=== PATIENT | male | born 1945 | race Caucasian/White ===

== ENCOUNTER 2017-01-10 20:39 | Inpatient (IN) | payer OTHER ==
[~2017-01-10] VITALS: Ht 160 cm; Wt 74.6 kg
--- NOTE | 2017-01-10 20:40 | NUR ---
TO BED 3 BIB PARAMEDICS C/O SEVERE SOB PER EMS REPORT. RECEIVED PT ON C-PAP. ER MD AT BEDSIDE TO EVAL PT WITH ORDERS RECEIVED. RT AT BEDSIDE. PLACE PT ON SIMPLE MASK 10L PER ER MD ORDER. PLACE PT ON CARDAIC MONITORING, CONTINUOUS POX. WILL CARRY OUT ORDERS.
--- NOTE | 2017-01-10 20:50 | NUR ---
CALLED [facility] [phone] AND SPOKE WITH OSCAR THE CAREGIVER. SHE WILL FAX DISCHARGE PAPERWORK FROM [facility] TO OUR ER.
[2017-01-10 20:58] LABS: BASOPHILS # (AUTO) 0.1 /CMM (0.0-0.2); BASOPHILS % (AUTO) 1.1 % (0.0-2.0); EOSINOPHILS % (AUTO) 0.1 % (0.0-6.0); HEMATOCRIT 43 % (39-51); HEMOGLOBIN 14.3 g/dL (13.5-17.5); LYMPHOCYTES # (AUTO) 1.2 /CMM (0.8-4.8); LYMPHOCYTES % (AUTO) 15.8 % (20.0-44.0); MEAN CORPUSCULAR HEMOGLOBIN 29 PG (26.0-33.0); MEAN CORPUSCULAR HGB CONC 33 g/dl (31.0-36.0); MEAN CORPUSCULAR VOLUME 88 fL (80-96); MONOCYTES # (AUTO) 0.4 /CMM (0.1-1.30); MONOCYTES % (AUTO) 5.4 % (2.0-12.0); NEUTROPHILS # (AUTO) 5.8 /CMM (1.8-8.9); NEUTROPHILS % (AUTO) 77.6 % (43.0-81.0); PLATELET COUNT (AUTO) 252 /CMM (150-450); RED BLOOD CELL COUNT(AUTO) 4.92 MIL/uL (4.5-6.0); WHITE BLOOD COUNT (AUTO) 7.5 K/uL (4.3-11.0)
--- NOTE | 2017-01-10 20:58 | NUR ---
NOTED PT O2 SAT 81% ON SIMPLE MASK, ER MD MADE AWARE WITH ORDER TO PREP PT FOR INTUBATION.
[2017-01-10] MEDS ORDERED: IV NS 0.9% 1,000 ML BAG IV ONE ×3 (21:00→22:00)
[2017-01-10] MEDS ORDERED: PIPERACILLIN /TAZOBACTAM 3.375 G in IV D5W 50 ML IV ONE (21:00)
--- NOTE | 2017-01-10 21:00 | NUR ---
PT INTUBATED BY DR. HALL ET-TUBE 8.0 FR, 25CM AT THE LIP LINE WITH (+) COLOR CHANGE ON THE CO2 DETECTOR, BILATERAL EQUAL BREATH SOUNDS HEARD BILATRALLY ON AUSCULTATION. WILL CONTINUE TO MONITOR PT CLOSELY.
--- NOTE | 2017-01-10 21:04 | NUR ---
RT PLACE PT ON VENT SETTINGS TO AC-16, TV-500, FIO2-100%, PEEP-5 PER ER MD ORDER. WILL CONTINUE TO MONITOR PT CLOSELY.
[2017-01-10 21:09] LABS: CARBON DIOXIDE 24 mmol/L (21-32); CHLORIDE 100 mmol/L (98-107); CREATININE 1.7 mg/dL (0.6-1.3); GLUCOSE 189 mg/dL (74-106); POTASSIUM 4.4 mmol/L (3.5-5.1); SODIUM SERUM 138 mmol/L (136-145); UREA NITROGEN, BLOOD 28 mg/dL (7-18)
[2017-01-10] MEDS ORDERED: PIPERACILLIN /TAZOBACTAM 3.375 G VIAL IV ONE (21:12)
[2017-01-10 21:13] LABS: INR 1.15 (0.87-1.13)
--- NOTE | 2017-01-10 21:16 | NUR ---
ET-TUBE PULLED BACK TO 24CM PER ER MD ORDER.
[2017-01-10 21:22] LABS: ALANINE AMINOTRANSFERASE 97 U/L (12-78); ALBUMIN 2.6 g/dL (3.4-5.0); ALKALINE PHOSPHATASE 143 U/L (46-116); ASPARTATE AMINOTRANSFERASE 57 U/L (15-37); B-TYPE NATRIURETIC PEPTIDE 17042 PG/ML (0-125); BILIRUBIN,DIRECT 0.2 mg/dL (0.0-0.2); BILIRUBIN,TOTAL 0.5 mg/dL (0.2-1.0); CALCIUM, SERUM 8.7 mg/dL (8.5-10.1); TOTAL PROTEIN, SERUM 7.4 g/dL (6.4-8.2)
--- NOTE | 2017-01-10 21:25 | NUR ---
ICU 255
[2017-01-10 21:30] LABS: TROPONIN I 0.631 ng/mL (0.00-0.056)
--- NOTE | 2017-01-10 21:39 | NUR ---
RT AT BEDSIDE FOR ABG.
[2017-01-10] MEDS ORDERED: DEXAMETHASONE SOD PHOSPHATE 10 MG/ML VIAL ONE (21:40)
[2017-01-10] MEDS ORDERED: ACETAMINOPHEN 650 MG/SUPP.RECT RC ONE ×2 (21:41→22:00)
[2017-01-10] MEDS ORDERED: PROPOFOL 100 ML IV ONE (21:41)
[2017-01-10 21:46] LABS: ABG BASE EXCESS -4.6 mmol/L; ABG OXYGEN SATURATION 99.3 % (92.0-98.5); ABG PH 7.308 (7.350-7.450); ABG PO2 445.4 mmHg (75.0-100.0); AaDO2 223.6 mmHg; COHb 0.3 % (0.5-1.5); MetHb 0.7 % (0.0-1.5); O2Hb 98.3 % (94.0-97.0); SITE, ABG Right Brachial
--- NOTE | 2017-01-10 21:53 | NUR ---
RT CHANGED VENT SETTINGS TO AC-16, TV-500, FIO2-50%, PEEP-5 PER ER MD ORDER. WILL CONTINUE TO MONITOR PT CLOSELY.
[2017-01-10] MEDS ORDERED: DEXAMETHASONE SOD PHOSPHATE 10 MG/ML VIAL IV ONE (22:00)
[2017-01-10] MEDS ORDERED: PROPOFOL 100 ML IV PRN (22:00)
--- NOTE | 2017-01-10 22:03 | NUR ---
DR. HALL GAVE SIGN-OUT TO DR. GARCIA.
--- NOTE | 2017-01-10 22:19 | NUR ---
REPORT CALLED TO ELEVATOR ERECTOREMILY HUDSON. WILL TRANSPORT PT VIA ACLS PROTOCOL.
[2017-01-10 22:36] LABS: BAND % (MANUAL) 62 % (0.0-5.0); LYMPHOCYTES % (MANUAL) 12 % (16-48); MONOCYTES % (MANUAL) 9 % (0-11.0); NEUTROPHILS % (MANUAL) 17 (42-76)
[2017-01-10 22:38] VITALS: BP 93/55
[2017-01-10 23:00] VITALS: BP 89/63
[2017-01-10] MEDS ORDERED: ENOXAPARIN SODIUM 30 MG/0.3 ML DISP.SYRIN SQ SCH (23:00)
[2017-01-10] MEDS ORDERED: MORPHINE SULFATE INJ 2 MG/ML DISP.SYRIN IV PRN (23:00)
[2017-01-10] MEDS ORDERED: Z GUARD REMEDY 2 OZ OINT TP PRN (23:00)
[2017-01-10] MEDS ORDERED: ACETAMINOPHEN 325 MG TABLET PO PRN (23:00)
[2017-01-10] MEDS ORDERED: ONDANSETRON HCL/PF 4 MG/2 ML VIAL IVP PRN (23:00)
[2017-01-10 23:08] VITALS: BP 89/63
[2017-01-10] MEDS: IV NS 0.9% 1,000 ML IV PRN (23:11)
[2017-01-10] MEDS ORDERED: ENOXAPARIN SODIUM 30 MG/0.3 ML DISP.SYRIN ONE (23:13)
[2017-01-10 23:15] VITALS: BP 88/56
[2017-01-10 23:30] VITALS: BP 90/52
[2017-01-10] MEDS ORDERED: IV NS 0.9% 1,000 ML IV ONE (23:30)
[2017-01-10] MEDS ORDERED: VANCOMYCIN 1 GM VIAL ONE (23:43)
[2017-01-10 23:45] VITALS: BP 96/55
[2017-01-11] VITALS (59 sets, daily range): BP systolic 65–142; BP diastolic 31–78
[2017-01-11] MEDS ORDERED: PROPOFOL 100 ML IV PRN
--- NOTE | 2017-01-11 01:00 | NUR ---
FOOD SCIENCE PROFESSOR - REC'D PT. FROM E.[facility]. REC' PHONE REPORT FROM ED-Henok KRUEGERN. PT. BROUGHT UP VIA GURNEY TO RM#[id number]. PT. IS FROM [facility]. ADMITTED FOR SEPTIC SHOCK/RESP. FAILURE. PT. IS SEDATED ON DIPRIVAN GTT. AT 10 MCG/KG/MIN. PT.IS VENTED W/SETTINGS AT AC-16, TV-550, 50% & PEEP OF 5. HEART MONITOR SHOWS SBP'S HOVERING IN THE LOW 90'S, SOMETIMES 80'S. HR/ST/LOW 100'S. SOFT WRIST RESTRAINTS INTACT. NO UOP VIA GA. AWARE OF VS'S & UOP. ORDERS REC'D. OGT IS TO LIS-EXPELLING BROWN GASTRIC CONTENTS. DRY SCAB/OLD WOUND TO LEFT LOWER MEDIAL ASPECT OF LEG. PICC LINE ORDERED. 2 PIVS HAVE ALL PORTS PATENT TO FLUSH. TROPONIN & LACTIC ACID DRAWN. PENDING RESULTS. CONT. POC.
--- NOTE | 2017-01-11 02:00 | NUR ---
BOTTOMING ROOM INSPECTOR - LACTIC ACID IS 3.8. INITIAL LA WAS 6.0. TROPONIN IS 0.895. INITIAL TROPONIN WAS 0.631. DIPRIVAN GTT. INCREASED TO 15 MCG/KG/MIN. PT. IS RESTLESS TERRIE. OGT HAS NOW PUT OUT A TOTAL OF 1300CC. CONT. TO MONITOR CLOSELY.
[2017-01-11] MEDS ORDERED: PIPERACILLIN /TAZOBACTAM 3.375 G VIAL IV ONE (04:11)
[2017-01-11 04:43] LABS: EOSINOPHILS % (AUTO) 0.1 % (0.0-6.0); HEMATOCRIT 40 % (39-51); HEMOGLOBIN 13.1 g/dL (13.5-17.5); LYMPHOCYTES # (AUTO) 0.3 /CMM (0.8-4.8); LYMPHOCYTES % (AUTO) 4.1 % (20.0-44.0); MEAN CORPUSCULAR HEMOGLOBIN 29 PG (26.0-33.0); MEAN CORPUSCULAR HGB CONC 33 g/dl (31.0-36.0); MEAN CORPUSCULAR VOLUME 90 fL (80-96); MONOCYTES # (AUTO) 0.2 /CMM (0.1-1.30); MONOCYTES % (AUTO) 2.3 % (2.0-12.0); NEUTROPHILS # (AUTO) 6.2 /CMM (1.8-8.9); NEUTROPHILS % (AUTO) 93.5 % (43.0-81.0); PLATELET COUNT (AUTO) 200 /CMM (150-450); RED BLOOD CELL COUNT(AUTO) 4.48 MIL/uL (4.5-6.0); WHITE BLOOD COUNT (AUTO) 6.6 K/uL (4.3-11.0)
[2017-01-11] MEDS ORDERED: PIPERACILLIN /TAZOBACTAM 3.375 G in IV D5W 50 ML IV SCH ×2 (05:00→12:00)
[2017-01-11 05:10] LABS: CALCIUM, SERUM 7.8 mg/dL (8.5-10.1); CARBON DIOXIDE 25 mmol/L (21-32); CHLORIDE 106 mmol/L (98-107); CREATININE 2.5 mg/dL (0.6-1.3); GLUCOSE 100 mg/dL (74-106); MAGNESIUM 2.1 mg/dL (1.8-2.4); PHOSPHORUS 4.7 mg/dL (2.5-4.9); POTASSIUM 4.8 mmol/L (3.5-5.1); SODIUM SERUM 142 mmol/L (136-145); UREA NITROGEN, BLOOD 40 mg/dL (7-18)
[2017-01-11 05:13] LABS: CHOLESTEROL 92 mg/dL (<200); HDL CHOLESTEROL 27 mg/dL (40-60); LDL 52 mg/dL (0-99); TRIGLYCERIDES 67 mg/dL (30-150)
[2017-01-11] MEDS ORDERED: NOREPINEPHRINE 4 MG/4 ML AMPUL IV ONE ×2 (05:33)
[2017-01-11 05:42] LABS: B-TYPE NATRIURETIC PEPTIDE 38445 PG/ML (0-125)
[2017-01-11] MEDS: NOREPINEPHRINE 8 MG in IV D5W 500 ML IV PRN ×2 (05:52→09:28)
--- NOTE | 2017-01-11 07:00 | NUR ---
icu initial note received pt sedated, unable to follow commands, does not respond to name, pt is on mech vent ett 8.0 @ 24 lipline ac 16 ac 550 fio2 50% peep 5, sating well, pt is tachypnea, sweating at this time, pt using accessory muscles, pt is on bedside monitor showing st 110's, no s/s of chest pain or discomfort at this time, pt has ogt, connected to lis, output of 1300ml, dark brown fluid, pt has f/c draining very minimal urine, aware, pt has l hand #16g, running diprivan @20mcg/min, levo running @ 6mcg/min, c/d/i/patent, flushing well, no s/s of infection/ infltration noted at this time, r wrist #18g,ns @ 100ml/hr,c/d/i/patent, flushing well, no s/s of infection/ infiltration noted at this time, pt has bilateral wrist restraints, removed at this time, at bedside, pt has no family, pt needs picc line for vasopressors, aware, all safety measures in place at all times, call light within easy reach, will monitor pt closely for changes
--- NOTE | 2017-01-11 07:00 | NUR ---
FIELD ARTILLERY OPERATIONS SPECIALIST - LEVOPHED & DIPRIVAN GTTS WERE BOTH INCREASED DURING END OF SHIFT. PLEASE REVIEW IV SPREAD SHEET FOR TIMES & LEVELS NOTED. POOR UOP VIA GA. A TOTAL OF 2400CC NOTED FROM OGT. VENT SETTINGS UNCHANGED. VERBAL REPORT GIVEN TO ARMANDO PATEL POC.
--- NOTE | 2017-01-11 07:26 | NUR ---
COUNSELING SERVICES MANAGER CALLED DR. GARCIA AND INFORMED THAT PATIENT IS ON 9 MCG LEVOPHED. PATIENT IS UNABLE TO GIVE CONSENT. NO FAMILY CONTACT INFO ON FILE. PER MD, PATIENT NEEDS AN EMERGENCY CONSENT FOR PICC LINE DUE TO HEMODYNAMIC INSTABILITY. SOFTWARE PACKAGING ENGINEER MADE AWARE. PER MD, HE WILL ADD THIS INFO TO PROGRESS NOTES.
--- NOTE | 2017-01-11 07:45 | NUR ---
sedation vacation Diprivan titrated down per protocol, pt does not follow commands, does not trach, unable to move extremities, responds to deep pain stimuli only, vvs stable at this time, pt is resting comfortably
[2017-01-11] MEDS ORDERED: ENOXAPARIN SODIUM 30 MG/0.3 ML DISP.SYRIN SQ SCH (07:46)
[2017-01-11] MEDS ORDERED: FEE PK DOSING 1 MIN EA MC ONE (07:57)
--- NOTE | 2017-01-11 08:00 | NUR ---
icu note pt needs picc line, pt is unable to consent, pt has no family, md aware
--- NOTE | 2017-01-11 08:23 | NUR ---
WOUND CARE CONSULT PATIENT SEEN AND SKIN ASSESSMENT LIMITED PATIENT BP UNSTABLE FOR TURNING AT THIS TIME. PLEASE SEE WOUND SHOWER DOORS AND PANELS FABRICATOR IN PCS ALONG WITH ALL RECOMMENDATIONS. PATIENT WITH YENI AT 11, ALL SKIN MANAGMENT DISCUSSED WITH NURSING AT THE BEDSIDE. RECOMMENT TURNING SCHEDULE Q 2 HOURS PATIENT CONDITION PERMITS, BILATERAL HEEL FLOATING, USE OF Z GUARD FOR SKIN/MOISTURE MANAGEMENT. 1ST STEP LOW AIRLOSS MATTRESS ORDERED AND TO BE PLACED WHEN AVAILABLE IN THE UNIT. MD IN AGREEMENT WITH PLAN OF CARE. Addendum: 01/11/17 at 4880 by MARK BUSTOS WNDNU Amended: Links added.
[2017-01-11] MEDS ORDERED: PANTOPRAZOLE 40 MG VIAL IV SCH (09:00)
[2017-01-11] MEDS ORDERED: QUET50TA PO (09:06)
[2017-01-11] MEDS ORDERED: SENN8.6T6 PO (09:06)
[2017-01-11] MEDS ORDERED: FERR-58 PO (09:06)
[2017-01-11] MEDS ORDERED: HALO5TAB PO (09:06)
[2017-01-11] MEDS ORDERED: QUET25TA PO (09:06)
[2017-01-11] MEDS ORDERED: TIOT18CA3 IH (09:06)
[2017-01-11] MEDS ORDERED: ALBU8.5H2 IH (09:06)
[2017-01-11] MEDS ORDERED: CARB300C6 PO (09:06)
[2017-01-11] MEDS ORDERED: DOCU-25 PO (09:06)
[2017-01-11] MEDS: IV NS 0.9% 1,000 ML IV PRN (09:29)
[2017-01-11] MEDS ORDERED: ASPIRIN 300 MG/SUPP.RECT RC SCH (09:30)
--- NOTE | 2017-01-11 09:30 | NUR ---
icu note diprivan restarted, per protocol, pt is restless, sweating, rr increased, hr increased, pt biting on ett, will monitor closely
[2017-01-11] MEDS ORDERED: NOREPINEPHRINE 16 MG in IV D5W 500 ML IV PRN (11:00)
[2017-01-11] MEDS ORDERED: PHENYLEPHRINE 80 MG in IV NS 0.9% 250 ML IV PRN (11:00)
--- NOTE | 2017-01-11 12:00 | NUR ---
icu note picc line rn at bedside
--- NOTE | 2017-01-11 12:00 | NUR ---
ICU NOTE PT UNABLE TO BE TURNED AT THIS TIME,PT IS ON 2 BLOOD PRESSORS
--- NOTE | 2017-01-11 12:57 | NUR ---
ICU NOTE PSUHPA VASPRESSOR WAS STARTED
--- NOTE | 2017-01-11 13:00 | NUR ---
ICU NOTE DR. CRUZ, DR. CAVRER MADE ROUNDS, AWAKE OF ALL LABS AND RESULTS, ALL NEW ORDERS ACK
[2017-01-11] MEDS ORDERED: IV NS 0.9% 1,000 ML IV PRN (13:37)
[2017-01-11 14:54] LABS: ABG BASE EXCESS -13.6 mmol/L; ABG PCO2 41.1 mmHg (35.0-45.0); ABG PH 7.163 (7.350-7.450); ABG PO2 77.9 mmHg (75.0-100.0); AaDO2 232.4 mmHg; COHb 0.3 % (0.5-1.5); MetHb 0.9 % (0.0-1.5); O2Hb 90.9 % (94.0-97.0); PEEP,BG 0 cm H2O; SITE, ABG Left Femoral; VENT MODE, BG AC 22 550 50% +0; VT, ABG 550 mL
--- NOTE | 2017-01-11 15:25 | NUR ---
ICU NOTE PT FOUND PULSELESS, PEA ON MONITOR, SIM FRANCOIS CALLED, CPR PERFORMED, REFER TO SIM PARRY, DR. ZAMUDIO AT BEDSIDE Addendum: 01/11/17 at 1600 by ARMANDO HARRIS RN ADDED: SUCCESSFUL CODE, PT WAS SINUS TACH @ 122BPM
[2017-01-11] MEDS ORDERED: SODIUM BICARBONATE SYR 50 MEQ/50 ML DISP.SYRIN IV ONE ×2 (15:42→15:57)
[2017-01-11] MEDS ORDERED: DEXTROSE 50%-WATER 50 ML DISP.SYRIN IV ONE (15:42)
[2017-01-11] MEDS ORDERED: EPINEPHRINE (1:10,000) SYRINGE 1 MG/10 ML DISP.SYRIN IVP ONE ×2 (15:42→15:57)
[2017-01-11] MEDS ORDERED: ATROPINE SULFATE 1 MG/10 ML DISP.SYRIN IV ONE (15:42)
--- NOTE | 2017-01-11 15:48 | NUR ---
ICU NOTE PT FOUND PULSELESS, PEA ON MONITOR, SIM FRANCOIS CALLED, CPR PERFORMED, REFER TO CODE BLUE SHEET Addendum: 01/11/17 at 1601 by ARMANDO HARRIS RN ADDED: UNSUCCESSFUL SIM, @ BEDSIDE,
--- NOTE | 2017-01-11 15:52 | NUR ---
NOTE - RN IC SECOND COLD BLUE UNSUCCESSFUL. ER PHYSICIAN PRONOUNCED THE PATIENT AT 1552H TODAY. VITAL SINGS UNREADABLE.
--- NOTE | 2017-01-11 16:28 | NUR ---
icu note [facility] called, ref # [id number]
--- NOTE | 2017-01-11 16:30 | NUR ---
RECLAIMER CALLED [facility]ER [phone]. SPOKE TO MARIAH. INFORMED LUIS THAT PATIENT'S MEDICAL HISTORY, HOW HER ARRIVED IN OUR FACILITY FROM A [facility]. INFORMED LUIS THAT PRIOR TO BOARD AND CARE, HE IS A HOMELESS. 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 CRUZ NUMBER- [id number]
--- NOTE | 2017-01-11 16:33 | NUR ---
PIPE AND TANK FABRICATOR CALLED [facility]. PER [facility] THIS DOES NOT QUALITY FOR ORGAN DONATION. REF NUMBER [id number]
--- NOTE | 2017-01-11 16:36 | NUR ---
FILM TECHNICIAN PER MARIAH FROM [facility] BODY GOES TO [facility]. PRODUCT SAFETY SPECIALIST MADE AWARE.
--- NOTE | 2017-01-11 17:00 | NUR ---
icu note body was prepped,taken to morgue with security.chart given to mix house tender
[2017-01-11] MEDS ORDERED: VANCOMYCIN 1 GM in IV D5W 250 ML IV SCH ×3 (23:00)
== END 2017-01-11 18:39 | disposition expired | DRG 871 ==
LOC: ER 20:42 → ICU 22:16
PROC: 5A1935Z Respiratory Ventilation, Less than 24 Consecutive Hours (ICD-10-PCS; principal; 2017-01-10)
PROC: 02HV33Z Insertion of Infusion Device into Superior Vena Cava, Percutaneous Approach (ICD-10-PCS; 2017-01-11)
PROC: B548ZZA Ultrasonography of Superior Vena Cava, Guidance (ICD-10-PCS; 2017-01-11)
DX: A41.9 Sepsis, unspecified organism (principal); J69.0 Pneumonitis due to inhalation of food and vomit; J96.01 Acute respiratory failure with hypoxia; I21.4 Non-ST elevation (NSTEMI) myocardial infarction; N17.0 Acute kidney failure with tubular necrosis; R65.21 Severe sepsis with septic shock; K56.60 Unspecified intestinal obstruction; J15.6 Pneumonia due to other Gram-negative bacteria; J15.9 Unspecified bacterial pneumonia; E87.2 Acidosis; K56.7 Ileus, unspecified; F03.90 Unspecified dementia, unspecified severity, without behavioral disturbance, psychotic disturbance, mood disturbance, and anxiety; K80.20 Calculus of gallbladder without cholecystitis without obstruction; K59.00 Constipation, unspecified; I95.9 Hypotension, unspecified
CPT/HCPCS: 31720; 36415; 36569; 36600; 71010-TC; 74000-TC; 76705-TC; 80048-TC; 80061-TC; 80076-TC; 82803-TC; 82962-TC; 83605-TC; 83735-TC; 83880; 84100-TC; 84443-TC; 84484-TC; 85025-TC; 85730-TC; 86850-TC; 87040-TC; 87081-TC; 93307-TC; 94002-TC; 94003-TC; 94762-TC; 99082-TC; A4606; A6403; C1751; C9113; J0171; J0461; J1100; J1650; J2370; J2543; J3370; J3490; J7030; J7050; J7060; Z7610